=== PATIENT | female | born 1990 | race Caucasian/White ===

== ENCOUNTER 2017-11-08 16:16 | Emergency (ER) | payer MEDICAID ==
[2017-11-08 16:30] VITALS: BP 149/86
--- NOTE | 2017-11-08 17:06 | ED Physician Documentation ---
History of Present Illness - Stated complaint Stated Complaint: MED REFILL - Chief complaint Chief Complaint: General - Additonal information Additional information: hx from pt 27 y/o f takes clonazepam 1 mg BID for anxeity moved to [facility] and has new PMD but has not seen yet out for 8 days very anxious and shaky otherwise well denies preg just here for med refill Review of Systems Constitutional: denies: Fever, Chills Cardiac: denies: Chest pain / pressure Respiratory: denies: Dyspnea GI: denies: Abdominal Pain : denies: Now [facility]: reports: Anxiety PD PAST MEDICAL HISTORY - Present Medications Home Medications: Ambulatory Orders Medication Instructions Recorded Confirmed clonazePAM [Clonazepam] 11/08/17 clonazePAM [Clonazepam] 1 mg PO BID PRN #28 tablet 11/08/17 - Allergies Allergies/Adverse Reactions: Allergies Allergy/AdvReac Type Severity Reaction Status Date / Time No Known Drug Allergies Allergy Verified 11/08/17 16:36 PD ED PE NORMAL - Vitals Vital signs reviewed: Yes - General General: Alert and oriented X 3 - Cardiac Cardiac: RRR - Respiratory Respiratory: No respiratory distress, Clear bilaterally - Psych Psych: Other (anxious) Results - Vitals Vitals: Vital Signs - 24 hr 11/08/17 16:28 Temperature 36.4 C L Heart Rate 66 Respiratory 16 Rate Blood Pressure 149/86 H O2 Saturation 98 Departure - Departure Disposition: Home, Self Care Clinical Impression: Medication refill Condition: Good Prescriptions: clonazePAM [Clonazepam] 1 mg PO BID PRN #28 tablet PRN Reason: Anxiety
== END 2017-11-08 17:51 | disposition home or self-care (01) ==
LOC: ED 16:16
DX: F41.9 Anxiety disorder, unspecified (principal)
CPT/HCPCS: 99283